=== PATIENT | female | born 1980 | race Caucasian/White ===

== ENCOUNTER 2018-01-23 14:13 | Emergency (ER) | payer MEDICAID ==
[~2018-01-23] VITALS: Ht 170.2 cm; Wt 132.9 kg
[2018-01-23 14:13] VITALS: BP_SYST 138
[2018-01-23] MEDS ORDERED: IBUPROFEN 800 MG TABLET PO ONE (14:45)
[2018-01-23 14:55] VITALS: BP_SYST 153
== END 2018-01-23 14:55 | disposition home or self-care (01) ==
LOC: SED 14:13
DX: M54.2 Cervicalgia (principal); M54.5 Low back pain; V89.2XXA Person injured in unspecified motor-vehicle accident, traffic, initial encounter; Y93.89 Activity, other specified; Y92.488 Other paved roadways as the place of occurrence of the external cause; Y99.8 Other external cause status
CPT/HCPCS: 81025; 99283